=== PATIENT | female | born 1995 | race Caucasian/White ===

== ENCOUNTER 2017-02-21 17:36 | Emergency (ER) | payer SELFPAY ==
[~2017-02-21] VITALS: Ht 162.6 cm; Wt 84.0 kg
[2017-02-21 20:02] LABS: BASOPHIL % 0.4 % (0-2); PLATELET COUNT 349 x10^3mcL (130-400); RED CELL DISTRIBUTION WIDTH 12.7 % (11.5-14.5)
[2017-02-21 20:09] LABS: CALCIUM 9.2 mg/dL (8.5-10.1); CARBON DIOXIDE 27.3 mmol/L (21-32); CHLORIDE SERUM 102 mmol/L (98-107); CREATININE SERUM 0.7 mg/dL (0.6-1.0); GFR1 > 60 mL/min; GLUCOSE SERUM 94 mg/dL (74-106); SODIUM SERUM 138 mmol/L (136-145)
[2017-02-21 20:14] LABS: ALBUMIN 3.9 g/dL (3.4-5.0); ALKALINE PHOSPHATASE 120 U/L (46-116); ALT/SGPT 24 U/L (14-59); AMYLASE 54 U/L (25-115); AST/SGOT 18 U/L (15-37); LIPASE 94 IU/L (73-393); TOTAL PROTEIN, SERUM 8.9 g/dL (6.4-8.2)
[2017-02-22 00:59] VITALS: BP 105/64
== END 2017-02-22 00:59 | disposition home or self-care (01) ==
LOC: ED 17:36
PROVIDERS: Specialist
DX: R10.12 Left upper quadrant pain (principal); R10.13 Epigastric pain; R10.11 Right upper quadrant pain
CPT/HCPCS: 83880; J1885; J7030; Q0092